=== PATIENT | female | born 1960 | race Caucasian/White ===

== ENCOUNTER → 2017-08-15 | Outpatient (CLI) | payer BC ==
--- NOTE | 2017-08-15 13:30 | BD ---
EXAMINATION TYPE: MG DEXA axial skeleton. DATE OF EXAM: 08/15/2017 COMPARISON: 07.26.2015 DEXA bone scan CLINICAL HISTORY: 57 YR OLD FEMALE....ICD-10 CODE: M89.9 DISORDER OF BONE Height: 61.3 Weight: 122 FRAX RISK QUESTIONS: Alcohol (3 or more units per day): NO Family History (Parent hip fracture): NO Glucocorticoids (More than 3mos): NO (Ex: prednisone, prednisolone, methylprednisolone, dexamethasone, and hydrocortisone). History of Fracture in Adulthood: NO Secondary Osteoporosis: NO 1. Type 1 Diabetes: NO 2. Hyperthyroidism: NO 3. Menopause before 45: NO 4. Malnutrition: NO 5. Chronic liver disease: NO Rheumatoid Arthritis: NO Current Tobacco Use: NO RISK FACTORS HISTORY OF: History of Wrist Fracture: RT WRIST... A KID Active: YES Diet low in dairy products/other sources of calcium: YES, LOW Postmenopausal woman: YES AT AGE 48 YRS OLD Hyperparathyroidism: NO Adrenal Insufficiency: NO MEDICATIONS: Osteoporosis Medications: YES, RISEDRONATE SODIUM , FOR 2 YRS Additional Medications: CALCIUM WITH VIT D Additional History: BREAST CANCER, RT BREAST....BILAT MASTECTOMY EXAM MEASUREMENTS: Bone mineral densitometry was performed using the [employer] System. Bone mineral density as measured about the Lumbar spine is: ----- L1-L4(G/cm2): 1.029 T Score Values are as follows: ----- L1: -1.9 ----- L2: -1.4 ----- L3: -0.8 ----- L4: -1.2 ----- L1-L4: -1.3 Bone mineral density has: Increased 0.9% since study of: 07.26.2015 Bone mineral density about the R hip (g/cm2): 0.814 Bone mineral density about the L hip (g/cm2): 0.798 T Score values are as follows: -----R Neck: -2.0 -----L Neck: -2.1 -----R Total: -1.5 -----L Total: -1.7 Bone mineral density has: Increased 0.8% since study of: 07.26.2015 FRAX%S: THERE IS A 8.5% CHANCE OF A MAJOR OSTEOPOROTIC FX AND A 1.2% FOR HIP FX.....PROBABILITY O F FX IN 10 YRS TIME IMPRESSION: Osteopenia (T Score between -2.5 and -1) persists in the low back and both hips. Bone density is fair ly stable from prior. There remains slightly increased risk of fracture and the patient may be considered for treatment. Re-Screen 2-5 years. NOTE: T-SCORE=SD OF THE YOUNG ADULT MEAN.
== END | disposition home or self-care (01) ==
LOC: RADBDWWP 12:34
PROVIDERS: ATTEND Obstetrics & Gynecology
DX: M85.852 Other specified disorders of bone density and structure, left thigh (principal); M85.851 Other specified disorders of bone density and structure, right thigh; M85.88 Other specified disorders of bone density and structure, other site
CPT/HCPCS: 77080

== ENCOUNTER → 2020-01-18 | Outpatient (CLI) | payer BC ==
--- NOTE | 2020-01-19 19:26 | BD ---
EXAMINATION TYPE: Axial Bone Density DATE OF EXAM: 01/18/2020 COMPARISON: NONE CLINICAL HISTORY: Postmenopausal screening Height: 5 FT 1 1/2 IN Weight: 124 FRAX RISK QUESTIONS: Alcohol (3 or more units per day): NO Family History (Parent hip fracture): NO Glucocorticoids (More than 3mos): NO (Ex: prednisone, prednisolone, methylprednisolone, dexamethasone, and hydrocortisone). History of Fracture in Adulthood: NO Secondary Osteoporosis: 1. Type 1 Diabetes: NO 2. Hyperthyroidism: NO 3. Menopause before 45: NO 4. Malnutrition: NO 5. Chronic liver disease: NO Rheumatoid Arthritis: NO Current Tobacco Use: NO RISK FACTORS HISTORY OF: History of Wrist Fracture: RIGHT When: A CHILD Family History of Osteoporosis: NO Active: YES Postmenopausal woman: AGE 48 MEDICATIONS: Osteoporosis Medications: YES Which medication: RISEDRONATE SODIUM How Lon YEARS Additional Medications: RISEDRONATE SODIUM, Additional History: BILATERAL MAST AGE 48 EXAM MEASUREMENTS: Bone mineral densitometry was performed using the [employer] System. Bone mineral density as measured about the Lumbar spine is: ----- L1-L4(G/cm2): 1.019 T Score Values are as follows: ----- L2: -1.5 ----- L3: -1.1 ----- L4: -1.0 ----- L1-L4: -1.3 Bone mineral density has: DECREASED -0.4 % since study of: 2017 Bone mineral density about the R hip (g/cm2): 0.703 Bone mineral density about the L hip (g/cm2): 0.732 T Score values are as follows: -----R Neck: -2.4 -----L Neck: -2.2 -----R Total: -1.5 -----L Total: -1.7 Bone mineral density has: DECREASED -0.5 % since study of: 2017 IMPRESSION: Osteopenia (T Score between -2.5 and -1). There is slightly increased risk of fracture and the patient may be considered for treatment. Re-Screen 2-5 years. NOTE: T-SCORE=SD OF THE YOUNG ADULT MEAN.
== END | disposition home or self-care (01) ==
LOC: RADBDWWP 16:12
PROVIDERS: ATTEND Obstetrics & Gynecology
DX: M85.80 Other specified disorders of bone density and structure, unspecified site (principal)
CPT/HCPCS: 77080

== ENCOUNTER 2020-02-24 06:37 | Day surgery (SDC) | payer BC ==
[2020-02-22 12:54] VITALS: BMI 23.0
[~2020-02-24 06:37] MED LIST: ACETAMINOPHEN TAB 500 MG TAB PO ONE; DEXAMETHASONE SOD PHOSPHATE 10 MG/ML 1 ML VIAL IV ONE; HEPARIN SODIUM,PORCINE 5,000 UNIT/ML 1 ML VIAL SQ ONE; LACTATED RINGERS 1,000 ML IV SCH; LIDOCAINE 1% (10MG/ML) FOR IV START INTRADERMA PRN; Pre Op ABX Message 1 EACH MISC MISCELLANE ONE
[2020-02-24] MEDS ORDERED: ONDANSETRON 4 MG/2 ML VIAL ONE (07:14)
[2020-02-24 07:23] VITALS: TEMP 97.5
[2020-02-24] MEDS ORDERED: MIDAZOLAM 2 MG/2 ML VIAL ONE (08:01)
[2020-02-24] MEDS ORDERED: fentaNYL (PF) 50 MCG/ML 2 ML AMP ONE (08:01)
[2020-02-24] MEDS ORDERED: PROPOFOL 10 MG/ML 20 ML VIAL IV ONE (08:01)
[2020-02-24] MEDS ORDERED: SODIUM CHLORIDE 0.9% 50 ML with ceFAZolin 1,000 MG IV ONE ×2 (08:20)
[2020-02-24] MEDS ORDERED: BUPIVACAINE (PF) 0.5% 30 ML VIAL SQ ONE ×2 (08:22)
--- NOTE | 2020-02-24 08:42 | P.GSHP ---
History of Present Illness H&P Date: 02/24/20 Chief Complaint: Left thigh skin lesion This a 59-year-old female who presents today for excision of a left skin lesion. Patient has a 3 cm skin lesion on her left lateral thigh. Past Medical History Past Medical History: Cancer, Seizure Disorder Additional Past Medical History / Comment(s): hx. breast cancer 11 yrs. ago, seizure related chicken pox as a baby-nothing since History of Any Multi-Drug Resistant Organisms: None Reported Past Surgical History: Breast Surgery, Hysterectomy Additional Past Surgical History / Comment(s): casey mastectomy Past Anesthesia/Blood Transfusion Reactions: No Reported Reaction Smoking Status: Former smoker - Past Family History Mother Family Medical History: No Reported History Medications and Allergies Home Medications Medication Instructions Recorded Confirmed Type Cholecalciferol [Vitamin D3 (25 1,000 unit PO DAILY 02/22/20 02/24/20 History Mcg = 1000 Iu)] Ubidecarenone [Co Q-10] 200 mg PO DAILY 02/22/20 02/24/20 History Allergies Allergy/AdvReac Type Severity Reaction Status Date / Time No Known Allergies Allergy Verified 02/24/20 07:19 Surgical - Exam Vital Signs Temp Pulse Resp BP Pulse Ox 97.5 F L 74 18 151/76 99 02/24/20 07:21 02/24/20 07:21 02/24/20 07:21 02/24/20 07:21 02/24/20 07:21 - General well developed, well nourished, no distress - Eyes PERRL - ENT normal pinna - Neck no masses - Respiratory normal expansion - Cardiovascular Rhythm: regular - Abdomen Abdomen: soft, non tender - Integumentary 3 cm skin lesion left lateral thigh Assessment and Plan Assessment: Left thigh skin lesion. We'll perform excision.
--- NOTE | 2020-02-24 08:43 | P.OP ---
Date of Procedure: 02/24/20 Preoperative Diagnosis: Left thigh skin lesion Postoperative Diagnosis: Left thigh skin lesion Procedure(s) Performed: Excision of left thigh skin lesion Anesthesia: MAC Surgeon: Reno Belle Estimated Blood Loss (ml): 2 Pathology: other (Left thigh skin lesion) Condition: stable Disposition: PACU Description of Procedure: The patient's placed on the operative table in the lateral position. She received IV sedation. The left lateral thigh skin lesion was prepped and draped in sterile fashion. The area was anesthetized 1% local Xylocaine. Elliptical skin incision was made around the lesion. The lesion measured approximately 4 cm in length and 3 symptoms with. The wound was closed in 2 layers using 3-0 Vicryl for the deep layer and 3-0 Monocryl for the skin layer Dermabond was applied. Patient top she will was sent to recovery room in stable condition.
[2020-02-24 09:05] VITALS: BP 108/67; PULSE 61; RESP 18
== END 2020-02-24 10:02 | disposition home or self-care (01) ==
LOC: OR 06:37
PROVIDERS: ATTEND Surgery
DX: L98.9 Disorder of the skin and subcutaneous tissue, unspecified (principal); Z85.828 Personal history of other malignant neoplasm of skin; Z85.3 Personal history of malignant neoplasm of breast; G40.89 Other seizures; Z86.19 Personal history of other infectious and parasitic diseases; Z90.13 Acquired absence of bilateral breasts and nipples; Z90.710 Acquired absence of both cervix and uterus; Z87.891 Personal history of nicotine dependence
CPT/HCPCS: 88305; 11404; J2250; J1644; J1100; J2405; J0690; J3010; J2704

== ENCOUNTER 2020-11-16 07:44 | Day surgery (SDC) | payer BC ==
[2020-11-14 13:52] VITALS: BMI 22.3
[~2020-11-16 07:44] MED LIST changes: -ACETAMINOPHEN TAB 500 MG TAB PO ONE; -DEXAMETHASONE SOD PHOSPHATE 10 MG/ML 1 ML VIAL IV ONE; -HEPARIN SODIUM,PORCINE 5,000 UNIT/ML 1 ML VIAL SQ ONE; -Pre Op ABX Message 1 EACH MISC MISCELLANE ONE
[2020-11-16 08:07] VITALS: TEMP 97.9
[2020-11-16] MEDS ORDERED: LIDOCAINE 1% INJ 10MG/ML (20 ML MDV) ONE (08:37)
[2020-11-16] MEDS ORDERED: PROPOFOL 10 MG/ML 20 ML VIAL IV ONE (08:37)
--- NOTE | 2020-11-16 08:54 | P.PCN ---
Date of Procedure: 11/16/20 Procedure(s) Performed: BRIEF HISTORY: Patient is a 60-year-old [id number] white female scheduled for an elective colonoscopy as a part of screening for colorectal neoplasia. Last colonoscopy was 10 years ago. PROCEDURE PERFORMED: Colonoscopy. PREOPERATIVE DIAGNOSIS: Screening for colon cancer. IV sedation per Anesthesia. PROCEDURE: After informed consent was obtained, the patient, was brought into the endoscopy unit. IV sedation was administered by Anesthesia under continuous monitoring. Digital rectal examination was normal. Initially the Olympus CF-160 flexible video colonoscope was then inserted in the rectum, gradually advanced into the cecum without any difficulty. Careful examination was performed as the scope was gradually being withdrawn. Ileocecal valve and the appendiceal orifice were visualized and appeared normal. Prep was excellent. Mucosa of the cecum, ascending colon, transverse colon, descending colon, sigmoid colon, and rectum appeared normal. Retroflexion was performed in the rectum and no lesions were seen. The patient tolerated the procedure well. IMPRESSION: Normal-appearing colon from rectum to cecum with no evidence of colorectal neoplasia. RECOMMENDATIONS: Findings of this examination were discussed with the patient is well as her family. She was advised to have a repeat screening colonoscopy in 10 years.
[2020-11-16 09:12] VITALS: BP 129/81; PULSE 61; RESP 18
== END 2020-11-16 09:27 | disposition home or self-care (01) ==
LOC: ORWHC2ENDO 07:44
PROVIDERS: ATTEND Internal Medicine Gastroenterology
DX: Z12.11 Encounter for screening for malignant neoplasm of colon (principal); Z87.891 Personal history of nicotine dependence; Z85.3 Personal history of malignant neoplasm of breast; Z90.710 Acquired absence of both cervix and uterus
CPT/HCPCS: J2001; J2704; G0121; 45378

== ENCOUNTER → 2022-12-21 | Outpatient (CLI) | payer OTHER ==
--- NOTE | 2022-12-21 15:14 | BD ---
EXAMINATION TYPE: Axial Bone Density DATE OF EXAM: 12/21/2022 CLINICAL HISTORY: 62 years old Female. ICD-10 CODE: Z78.0 post menopausal Height: 61.25in Weight: 125lb FRAX RISK QUESTIONS: Secondary Osteoporosis: RISK FACTORS HISTORY OF: Active: yes Postmenopausal woman: yes MEDICATIONS: Osteoporosis Medications: Which medication: Risedronate sodium How Lon or 7 years Additional Medications: vitamin d Additional History: history of breast cancer EXAM MEASUREMENTS: Bone mineral densitometry was performed using the [employer] System. Bone mineral density as measured about the Lumbar spine is: ----- L1-L4(G/cm2): 0.971 T Score Values are as follows: ----- L1: -2.5 ----- L2: -1.9 ----- L3: -1.3 ----- L4: -1.6 ----- L1-L4: -1.7 Z Score Values are as follows: ----- L1: -0.8 ----- L2: -0.2 ----- L3: 0.4 ----- L4: 0.1 ----- L1-L4: -0.1 Bone mineral density has: Decreased -4.7% since study of: 01-18-2020 Bone mineral density about the R hip (g/cm2): 0.753 Bone mineral density about the L hip (g/cm2): 0.775 T Score values are as follows: -----R Neck: -2.4 -----L Neck: -2.4 -----R Total: -2.0 -----L Total: -1.8 Z Score values are as follows: -----R Neck: -0.9 -----L Neck: -0.9 -----R Total: -0.8 -----L Total: -0.6 Bone mineral density has: Decreased -4.7% since study of: 01-18-2020 FRAX%s: The graph provided illustrates a 11.9% chance for a major osteoporotic fx and a 2.3% chance f or the hips probability for fx in 10 years time. IMPRESSION: Osteopenia (T Score between -2.5 and -1). There is slightly increased risk of fracture and the patient may be considered for treatment. Re-Screen 2-5 years. NOTE: T-SCORE=SD OF THE YOUNG ADULT MEAN.
== END | disposition home or self-care (01) ==
LOC: RADBDWWP 14:00
PROVIDERS: ATTEND Obstetrics & Gynecology
DX: M81.0 Age-related osteoporosis without current pathological fracture (principal); Z78.0 Asymptomatic menopausal state; M85.89 Other specified disorders of bone density and structure, multiple sites
CPT/HCPCS: 77080